=== PATIENT | female | born 1980 | race Two or more races ===

== ENCOUNTER 2025-04-10 13:06 | Outpatient (AMB) | payer BC, SELFPAY ==
[2025-04-10 13:08] VITALS: BMI 21.6
--- NOTE | 2025-04-10 13:08 | A.PHYSOV_ITS ---
Vital Signs 04/10/25 13:08 Height 5 ft 5 in Weight 130 lb BMI 21.6 Intake Visit Reasons: re-eval for back injection Intake Note: Patient is a 44 year old female coming in for back pain. Patient is interested in having another injection ordered. Garnett Machine Operator Required: No Allergies adhesive tape Allergy (Unknown, Verified 04/10/25 13:11) Unknown codeine Allergy (Unknown, Verified 04/10/25 13:11) Unknown lactose Allergy (Unknown, Verified 04/10/25 13:11) Unknown latex Allergy (Unknown, Verified 04/10/25 13:11) Unknown HPI Comments Details: History of Present Illness The patient is a 44 year old female presenting for management of chronic low back and sacroiliac joint pain. Her pain is exacerbated by prolonged periods of sitting, particularly while driving, and worsens before her menstrual cycle. The pain can be sharp or a nagging, throbbing, dull ache that radiates to the groin and shoots down her leg. She finds that movement is beneficial, and she participates in strength and conditioning and core strengthening exercises, which she feels prevents the pain from being worse. She plays pickleball but is unable to play on consecutive days after a long session due to the pain. At night, she sometimes uses a cannabis gummy to relax her body enough to allow for stretching or using a lacrosse ball on the affected areas. Her history of interventions includes a total of four sacroiliac joint injections and a prior hip injection, provided 50% reduction of her pain for 3 months. She recently took prednisone but stopped after two doses due to experiencing significant anxiety, which she noted while also taking Adderall. Her last attempt at an injection without sedation was very painful, causing her to tense up and nearly pass out, and she felt the injection was ineffective as a result. Pain Description - Location: Low back and bilateral sacroiliac (SI) joints, with the right side being worse. - Radiation: Radiates to the groin and shoots down the leg. - Quality: Described as varying between sharp pain and a nagging, throbbing, dull ache. - Exacerbating Factors: Prolonged sitting, driving in stop-and-go traffic, and the time before her menstrual period. - Relieving Factors: Movement, strength and conditioning exercises, and stretching after using a cannabis gummy for relaxation. - Impact on Function: The pain has caused her to miss work and limits her ability to play pickleball on consecutive days. [facility] Surgical History Previous section Social History Alcohol intake: current Alcohol intake frequency: does not drink Patient Tobacco Use Status: Never used Tobacco Use of substances other than those prescribed or required for medical reasons: Yes Substance Use Type: Marijuana Review of Systems Narrative Review of Systems Low back pain without radiculopathy. No incontinence, saddle anesthesia urinary retention. Physical Exam Exam Exam: Physical Exam Lumbar Spine: Examination of her lumbar spine, there is no visible swelling or deformity. She is tender to lower lumbar facets. She is also tender to bilateral SI joint to palpation. [id number]-left. Special Tests: Lhermittes sign was negative Heel Toe walk is normal Left straight leg raise: Negative Right straight leg raise: Negative Special tests Mariaelena test is positive bilateral Ganslen's test is positive bilateral SI Joint compression test positive bilateral Deniz test negative Piriformis stretch is negative Lower Extremities: Full range of motion bilateral lower extremities. No calf pain or edema. Neuro: Sensation: Intact to lower extremities bilaterally Strength L2 (Psoas): 5/5 on the left and 5/5 on the right. L3 (Quads): 5/5 on the left and 5/5 on the right. L4 (Ant tibialis): 5/5 on the left and 5/5 on the right. L5 (EHL) 5/5 on the left and 5/5 on the right. S1 (Gastroc): 5/5 on the left and 5/5 on the right. DTR L4: (Patellar) Left 2 Right 2 S1: (Achilles) Left 2 Right 2 Babinski Downgoing No pathologic clonus. No involuntary movement. Vital Signs: BMI result Body Mass Index 21.6 Assessment & Plan Assessment & Plan (1) Bilateral sacroiliitis: Code(s): M46.1 - Sacroiliitis, not elsewhere classified Category: Medical Plan Pain Management - Analgesia: The patient notes that prior SI joint injections have not provided long-term help. - She has a refill available for ibuprofen and uses cannabis gummies at night to facilitate stretching. - Activities of Daily Living: Pain is aggravated by driving and has caused her to miss work. - It limits her ability to play pickleball for extended periods. - Adverse Effects: The patient stopped taking prednisone due to experiencing severe anxiety. - Affect: The pain has been severe enough to bring her to tears. - She also expressed significant fear and anxiety about the pain of the injection procedure without sedation. - Aberrant Drug Related behaviors: None noted. Plan Patient was informed and verbally consented to the use of an ambient scribe for clinic note documentation during this visit. 1. Sacroiliitis The patient's chronic bilateral sacroiliac joint pain, which is worse on the right. She has agreed to proceed with another attempt at bilateral SI joint injections, which will be performed without sedation. The procedure will start on the right side, and she can decide whether to proceed with the left side based on her tolerance. A prescription for Ativan 1 mg will be provided for anxiety and relaxation prior to the procedure, and she was advised she will need a local combination truck driver. A referral will be placed to Dr. Lora for a neurosurgical consultation to discuss the possibility of a minimally invasive SI joint fusion on the right. The option of adding gabapentin for neuropathic pain was discussed as a potential future treatment. The patient was instructed to discontinue prednisone due to side effects and to avoid taking ibuprofen for one week prior to her injection to minimize bleeding risk. Discussion Notes I discussed with the patient her chronic bilateral sacroiliac joint pain, noting that prior injections have not provided sustained relief. We reviewed the options of repeating the injections or pursuing a surgical consultation for SI joint fusion. The patient expressed considerable anxiety about undergoing the injection procedure without sedation, based on a previous painful experience. I will prescribe Ativan 1 mg for her to take prior to the procedure to assist with relaxation, and I emphasized the need for a local combination truck driver. We agreed to schedule bilateral SI joint injections, starting with the more symptomatic right side, with the option for her to decline the left-sided injection if the procedure is not tolerated. I explained that the procedure involves injecting the joint and blocking associated nerves. I also placed a referral to Dr. Velarde for a surgical consultation regarding SI joint fusion. I counseled her to discontinue prednisone due to anxiety and to avoid any NSAIDs like ibuprofen for one week prior to the injection to reduce bleeding risk. Patient Instructions - A prescription for Ativan (lorazepam) 1mg will be sent to your pharmacy. - Take one pill before your injection procedure to help you relax. - You must have someone drive you to and from your appointment if you take this medication. - You will be scheduled for injections in both of your sacroiliac joints (on the right and left side of your low back). - The doctor will start with the right side, and you can stop the procedure at any time if it is too painful to do the left side. - Do not take any anti-inflammatory medications like ibuprofen, Motrin, or Aleve for one week before your injection. - Taking these medications increases your risk of bleeding, and your procedure will be canceled if you take them. - Stop taking the prednisone pills, as they are likely causing your anxiety. - A referral is being made to Dr. Lora, a surgeon, to discuss other options for your back pain. - His office will contact you to schedule an appointment. - You will be provided with a work note. Orders: Referrals Neurosurgery Referral M46.1 - Sacroiliitis, not elsewhere classified Medications: New lorazepam (Ativan) 1 tab 1 hour prior to procedure 1 mg PO DAILY PRN 1 tab 0RF anxiety M46.1 - Sacroiliitis, not elsewhere classified Coding Level of Care Code Tele Est Pt Level 4 (93047) Diagnoses Bilateral sacroiliitis M46.1
--- OUTSIDE RECORDS SUMMARY | 2025-04-10 17:05 | XMS_ITS | Encounter Summary ---
Author Organization [facility] Address [address] [place] [address] Care Team Providers Care Power Checker Name Role Phone Kaela Alcala MD Primary Care Provider [phone] Encounter Details Date Type Department Care Team (Late st Contact Info) Description 10/13/2010 Orders Only [facility] [address] [place] [id number] Rose Hernandez MD Social History Tobacco Use Types Packs/Day Years Used Date Smoking Tobacco: Former Smokeless Tobacco: Never Comments:1 CIGARETTE A DAY Alcohol Use Standard Drinks/Week Comments Yes 0 (1 standard drink = 0.6 oz pur e alcohol) 3-4 ONCE PER WK Comments No Sex and Gender Information Value Date Recorded Sex Assigned at Not on file Legal Sex Female 10:57 PM EDT Gender Identity Not on file Sexual Orientation Not on file documented as of this encounter Progress Notes * Andres Mcclendon CRNP - 10/16/2010 6:54 PM EDTQuick Note: Urine culture noted on Macrobid * Rose Hernandez MD - 10/14/2010 6:06 AM EDTQuick Note: Abnormal UA consistent with UTI. Patient began taking abx yesterday for this. No further action necessary. Await cultures. documented in this encounter Plan of Treatment Not on file documented as of this encounter Procedures * Due to [place] state law, this organization might not be sharing negative HIV tests. Procedure Name Priority Date/Time Associated Diagnosis Comments CULTURE, URINE Routine 10/13/2010 UTI (urinary tract infection) URINALYSIS, COMPLETE (DIP & MICRO) STAT (All results called to provider) 10/13/2010 UTI (urinary tract infection) documented in this encounter Results * Due to [place] [employer] law, this organization might not be sharing negative HIV tests. * (ABNORMAL) CULTURE, URINE (10/13/2010) URINE CULTURE CLEAN VOID SEE TEXT(A) [facility] Comment: SOURCE: URINE (#1) 50,000-100,000 CFU/ML E COLI ADDITIONAL ORGANISM(S), <10,000 CFU/ML. MAY REPRESENT NORMAL ANGELIKA CONTAMINATION. NO FURTHER TESTING. SUSCEPTIBILITIES #1 AMPICILLIN <8 S AMPICILLIN/SUL <8 S AUGMENTIN <8 S CEFAZOLIN <8 S CEFEPIME <4 S CEFOTAXIME <2 S CEFTRIAXONE <8 S CEFUROXIME <4 S CIPROFLOXACIN <1 S ERTAPENEM <2 S GENTAMICIN <4 S IMIPENEM <1 S LEVOFLOXACIN <2 S NITROFURANTOIN <32 S PIPERACILLIN/TA <16 S TIMENTIN <16 S TOBRAMYCIN <4 S TRIMETH/SULFA <2 S 10/13/2010 10/13/2010 8:3 2 PM EDT Narrative [facility] - 10/16/2010 11:28 AM EDT Report Comments: LESS THAN 5 CC RECEIVED FOR TESTING ND RESULTS DUE TO COLOR INTERFERENCE OF URINE us Rose Hernandez MD LABORATORY Final Result [facility] [address] [place] [address] * (ABNORMAL) URINALYSIS, COMPLETE (DIP & MICRO) (10/13/2010) COLOR (URINE) ORANGE(A) YELLOW [facility] APPEARANCE (URINE) TURBID(A) CLEAR [facility] SPECIFIC GRAVITY > 1.030 1.001 - 1.035 [facility] PH (URINE) 5.5 5.0 - 8.0 [facility] PROTEIN (URINE) TNP [facility] GLUCOSE (URINE) TNP [facility] Ketones (Urine) TNP [facility] BILIRUBIN (URINE) TNP [facility] BLOOD (URINE) 3+(A) NEG [facility] WBC (URINE) TNP [facility] NITRITE (URINE) TNP [facility] WBC (URINE) PACKED(A) 0-4/HPF [facility] RBC (Urine Sed) PACKED(A) 0-3/HPF [facility] EPITHELIAL CELLS.SQUAMOUS (URINE SED) 0 0-5/HPF [facility] EPITHELIAL CELLS.TRANSITIO NAL (URINE SED) 0 0-5/HPF [facility] EPITHELIAL CELLS.RENAL (URINE SED) 0 0-3/HPF [facility] BACTERIA (URINE) FEW(A) NONE SEEN [facility] Microscopic Other (Urine) FEW MUCOUS(A) [facility] 10/13/2010 10/13/2010 8:3 2 PM EDT Narrative [facility] - 10/13/2010 8:57 PM EDT Report Comments: LESS THAN 5 CC RECEIVED FOR TESTING ND RESULTS DUE TO COLOR INTERFERENCE OF URINE us Rose Hernandez MD LAB SAME DAY RESULT Final Re sult [facility] [address] [place] [address] documented in this encounter Visit Diagnoses Diagnosis UTI (urinary tract infection) Urinary tract infection, site not specified documented in this encounter Care Teams Power Checker Relationship Specialty Start Date End Date Kaela Alcala MD [address] [id number] PCP - General Internal Medicine 10/13/10 documented as of this encounter
--- OUTSIDE RECORDS SUMMARY | 2025-04-10 17:05 | XMS_ITS | Encounter Summary ---
Author Organization [facility] Address [address] [place] [address] Care Team Providers Care Grocery Supervisor Name Role Phone Kaela Alcala MD Primary Care Provider [phone]- [phone] Encounter Details Date Type Department Care Team (Late st Contact Info) Description 08/31/2014 Orders Only Population [facility] [address] [place] [address] Kaela Alcala MD [address] [address] Social History Tobacco Use Types Packs/Day Years [...] on file documented as of this encounter Plan of Treatment Not on file documented as of this encounter Visit Diagnoses Not on filedocumented in this encounter Care Teams Grocery Supervisor Relationship Specialty Start Date End Date Kaela Alcala MD [address] [address] PCP - General Internal Medicine 10/13/10 documented as of this encounter
--- OUTSIDE RECORDS SUMMARY | 2025-04-10 17:05 | XMS_ITS | Clinical Summary ---
Author Organization [facility] Address [address] [place] [address] Care Team Providers Care Lubricating Machine Tender Name Role Phone Kaela Alcala MD Primary Care Provider [phone]- [phone] Allergies No known active allergies Medications LORAZEPAM 0.5 MG OR TABS as needed 1 tab prn 60 0 10/22/2006 Active Amphetamine-Dex troamphetamine 10 MG OR CP24 1 CAPSULES EVERY MORNING Active BuPROPion HCl 150 MG OR TB12 1 TABLET TWICE DAILY 60 Tab 5 08/14/2010 Active Active Problems Problem Noted Date Diagnosed Date Anxiety Tobacco abuse Family History Medical History Relation Name Comments Heart Disorder Father Diabetes Maternal grandfather Hypertension Mother Cancer (?Type) Neg Hx Relation Name Status Comments Father Maternal grandfather Mother Social History Tobacco Use Types Packs/Day Years [...] on file Sexual Orientation Not on file Last Filed Vital Signs Vital Sign Reading Time Taken Comments Blood Pressure 114/72 10/13/2010 9:00 PM EDT Pulse 76 10/13/2010 9:00 PM EDT Temperature 36.8 C (98.2 F) 10/13/2010 9:00 PM EDT Respiratory Rate 16 10/13/2010 9:00 PM EDT Oxygen Saturation 98% 10/13/2010 9:00 PM EDT Inhaled Oxygen Concentration - - Weight 56.8 kg (125 lb 3.2 oz) 08/01/2010 1:34 P M EDT Height 164.5 cm (5' 4.75 ) 08/01/2010 1:34 PM ED T Body Mass Index 21 08/01/2010 1:34 PM EDT Plan of Treatment Health Maintenance Due Date Last Done Comments Hepatitis C Screening 1981 Pap Smear 1997 DTaP/Tdap/Td (1 - Tdap) 07/08/1999 Hep B (1 of 3 - 19+ 3-dose series) 2000 Mammogram/Breast Imaging 2021 COVID-19 Vaccine ( - 2024-2 6 season) 2024 Influenza (#1) 2024 Zoster (Shingrix) (1 of 2) 07/08/2031 HPV Vaccine (No Doses Required) Completed Hep A Aged Out No longer eligi ble based on patient's age to complete this topic Hib Aged Out No longer eligi ble based on patient's age to complete this topic Meningococcal ACWY Aged Out No longer eligible based on patient's age to complete this topic Pneumococcal Aged Out No longer eligi ble based on patient's age to complete this topic Insurance FFS Care Teams Lubricating Machine Tender Relationship Specialty Start Date End Date Kaela Alcala MD [address] [place] [address] PCP - General Internal Medicine 10/13/10
--- OUTSIDE RECORDS SUMMARY | 2025-04-10 17:05 | XMS_ITS | Clinical Summary ---
Author Organization [facility] Address [address] [address] Phone Care Team Providers Care Mattress Spring Encaser Name Role Phone Unavailable Primary Care Provider Unavailabl e Allergies Active Allergy Reactions Criticality Noted Date Comments Latex, Natural Rubber Unknown Medium 03/05/2015 Social History Tobacco Use Types Packs/Day Years Used Date Smoking Tobacco: Never Assessed Education Answer Date Recorded Are you interested in more education? Not on nicole e 08/21/2022 Are you concerned about learning? Not on file 08/21/2022 No 08/21/2022 No 08/21/2022 Digital Access Answer Date Recorded No 09/21/2022 No 09/21/2022 No 09/21/2022 Reliable internet access at home? Not on file 09/21/2022 Device with a working camera? Not on file Comments Unknown Sex and Gender Information Value Date Recorded Sex Assigned at Not on file Legal Sex Female 3:45 AM EST Gender Identity Not on file Sexual Orientation Not on file Plan of Treatment Health Maintenance Due Date Last Done Comments DEPRESSION SCREENING 1993 SMOKING Hx and SMOKELESS TOBACCO SCREENING 1994 HIV ONE-TIME SCREENING (18-6 5 YEARS) 07/08/1999 PAP SMEAR 2002 MAMMOGRAM 2021 INFLUENZA VACCINE (#1) 2024 COVID-19 VACCINE (2 2024-2 6 season) 2024 08/20/2020 Adult Td,Tdap Booster 03/05/2028 03/05/2018 , 01/24/2015, 09/10/2009 HEPATITIS C SCREENING Completed 08/09/2014 HEPATITIS A VACCINES Aged Out No long er eligible based on patient's age to complete this topic HIB VACCINES Aged Out No longer eligi ble based on patient's age to complete this topic MENINGOCOCCAL VACCINES (ACWY) Aged Out No longer eligible based on patient's age to complete this topic MENINGOCOCCAL VACCINES (B) Aged Out N o longer eligible based on patient's age to complete this topic PNEUMOCOCCAL VACCINES (0-49 years) Aged Out No longer eligible b ased on patient's age to complete this topic Medical Devices Not on file Insurance [address] [place] [address] POS EPO [facility]PO [facility] POS EPO [facility] POS EPO [facility] POS [facility]PO [facility] POS [facility]PO [facility] POS EPO [facility] POS EPO [facility] POS EPO Additional Source Comments The information contained in this document represents components of the legal health record. It is not the complete legal health record.[facility]
--- OUTSIDE RECORDS SUMMARY | 2025-04-10 17:05 | XMS_ITS | Clinical Summary ---
Author Organization [facility] Address [address] [place] [address] Phone Care Team Providers Care Manager Application Development Name Role Phone Mari Beatty Primary Care Provider +1- [phone] Mari Beatty Unavailable Mari Beatty Unavailable [phone] Social History Tobacco Use Types Packs/Day Years Used Date Smoking Tobacco: Never Assessed Comments Unknown Sex and Gender Information Value Date Recorded Sex Assigned at Not on file Legal Sex Female 9:30 PM EDT Gender Identity Not on file Sexual Orientation Not on file Plan of Treatment Not on file Care Teams Manager Application Development Relationship Specialty Start Date End Date Mari Beatty [address] [place] [address] PCP - General 06/28/14 Mari Beatty [address] [place] [address] PCP - Clinical PCP 07/02/14 Mari Beatty [address] [place] [address] PCP - Insurance PCP 07/02/14
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
--- OUTSIDE RECORDS SUMMARY | 2025-04-10 17:05 | XMS_ITS ---
Author Name [facility] Organization Unknown Care Team Organization Name Specialty Phone Email Start Date End Da te [facility] Aissatou Levi Primary Care 07/01/2022 024 [facility] Vinny Farias Primary Care 03/03/202211/24
== END 2025-04-10 13:29 | disposition home or self-care (01) ==
LOC: HO.HPHYS 13:06
PROVIDERS: PCP Internal Medicine; Visit Provider Physician Assistant
DX: M46.1 Sacroiliitis, not elsewhere classified (principal)
CPT/HCPCS: 99214